=== PATIENT | male | born 1980 | race Caucasian/White ===

== ENCOUNTER 2017-12-11 11:09 | Emergency (ER) | payer MEDICAID ==
[~2017-12-11] VITALS: Ht 182.9 cm; Wt 109.1 kg
[~2017-12-11 11:09] MED LIST: HYDR25TA PO; METHADONE
[2017-12-11 11:25] VITALS: BP 144/99
[2017-12-11] MEDS ORDERED: PROPARACAINE HCL 0.5% 15 ML OPHTHALMIC SOLUTION OU ONE (12:15)
== END 2017-12-11 12:09 | disposition left against medical advice (07) ==
LOC: EMS 11:11
DX: H53.8 Other visual disturbances (principal); F17.210 Nicotine dependence, cigarettes, uncomplicated; F12.90 Cannabis use, unspecified, uncomplicated; F11.90 Opioid use, unspecified, uncomplicated; Z53.21 Procedure and treatment not carried out due to patient leaving prior to being seen by health care provider

== ENCOUNTER 2017-12-11 15:06 | Emergency (ER) | payer MEDICAID ==
[~2017-12-11] VITALS: Ht 185.4 cm; Wt 113.6 kg
[2017-12-11] MEDS ORDERED: PROPARACAINE HCL 0.5% 15 ML OPHTHALMIC SOLUTION OU ONE (15:45)
[2017-12-11] MEDS ORDERED: FLUORESCEIN SODIUM 1 MG STRIP ONE (15:57)
[2017-12-11 16:41] VITALS: BP 138/66
== END 2017-12-11 16:45 | disposition home or self-care (01) ==
LOC: EMS 15:08
DX: H11.32 Conjunctival hemorrhage, left eye (principal); R03.0 Elevated blood-pressure reading, without diagnosis of hypertension; F12.90 Cannabis use, unspecified, uncomplicated; F11.90 Opioid use, unspecified, uncomplicated; Z87.891 Personal history of nicotine dependence
CPT/HCPCS: 99283

== ENCOUNTER 2018-02-04 23:05 | Emergency (ER) | payer MEDICAID ==
[~2018-02-04] VITALS: Ht 182.9 cm; Wt 113.6 kg
[~2018-02-04 23:05] MED LIST changes: -HYDR25TA PO
[2018-02-05] MEDS ORDERED: LIDOCAINE HCL 1%/EPI 1:200,000/PF 30 ML VIAL INJ ONE (00:15)
[2018-02-05 00:57] VITALS: BP 144/77
== END 2018-02-05 00:59 | disposition home or self-care (01) ==
LOC: EMS 23:07
DX: S51.812A Laceration without foreign body of left forearm, initial encounter (principal); F12.90 Cannabis use, unspecified, uncomplicated; F13.10 Sedative, hypnotic or anxiolytic abuse, uncomplicated; F11.90 Opioid use, unspecified, uncomplicated; Z87.891 Personal history of nicotine dependence; W45.8XXA Other foreign body or object entering through skin, initial encounter; Y93.89 Activity, other specified; Y92.89 Other specified places as the place of occurrence of the external cause; Y99.8 Other external cause status
CPT/HCPCS: 12002; 99283; J3490

== ENCOUNTER 2018-03-11 20:08 | Emergency (ER) | payer MEDICAID ==
[~2018-03-11] VITALS: Ht 182.9 cm; Wt 120.5 kg
[2018-03-11] MEDS ORDERED: IBUPROFEN 600 MG TABLET PO ONE (21:15)
[2018-03-11] MEDS ORDERED: SILVER SULFADIAZINE 1% 25 GM CREAM TP ONE (21:15)
[2018-03-11 21:33] VITALS: BP 136/84
== END 2018-03-11 21:40 | disposition home or self-care (01) ==
LOC: EMS 20:09
DX: T21.22XA Burn of second degree of abdominal wall, initial encounter (principal); R03.0 Elevated blood-pressure reading, without diagnosis of hypertension; F11.90 Opioid use, unspecified, uncomplicated; F12.90 Cannabis use, unspecified, uncomplicated; Z87.891 Personal history of nicotine dependence; X10.1XXA Contact with hot food, initial encounter; Y93.89 Activity, other specified; Y92.89 Other specified places as the place of occurrence of the external cause; Y99.8 Other external cause status
CPT/HCPCS: 16020; 99284; Z7610

== ENCOUNTER 2018-08-31 08:06 | Emergency (ER) | payer MEDICAID, OTHER ==
[~2018-08-31] VITALS: Ht 180.3 cm; Wt 120.5 kg
[~2018-08-31 08:06] MED LIST changes: -METHADONE; +METHADONE PO
[2018-08-31] MEDS ORDERED: KETOROLAC TROMETHAMINE 30 MG/ML VIAL IM ONE (09:15)
[2018-08-31] MEDS ORDERED: LIDOCAINE 5% TRANSDERMAL PATCH TD ONE (09:15)
[2018-08-31 10:01] VITALS: BP 135/87
== END 2018-08-31 10:24 | disposition home or self-care (01) ==
LOC: EMS 08:07
DX: S20.212A Contusion of left front wall of thorax, initial encounter (principal); F11.90 Opioid use, unspecified, uncomplicated; Z87.891 Personal history of nicotine dependence; W01.198A Fall on same level from slipping, tripping and stumbling with subsequent striking against other object, initial encounter; Y93.89 Activity, other specified; Y92.89 Other specified places as the place of occurrence of the external cause; Y99.8 Other external cause status
CPT/HCPCS: 96372; 99283; J1885